=== PATIENT | male | born 1965 | race Hispanic/Latino ===

== ENCOUNTER 2023-03-12 18:31 | Emergency (ER) | payer OTHER ==
[~2023-03-12] VITALS: Ht 167.6 cm; Wt 111.4 kg
[2023-03-12] MEDS ORDERED: TETRACAINE HCL 0.5% 4 ML OPHTH SOLN OP SCH (19:00)
[2023-03-12] MEDS ORDERED: TETANUS/DIPHTHERIA TOXOID [ADULT] 0.5 ML VIAL IM ONE (22:00)
[2023-03-12] MEDS ORDERED: IBUPROFEN 600 MG TABLET PO ONE (22:30)
[2023-03-12 22:56] VITALS: BP 146/62; PULSE 74; RESP 18; O2SAT 98
== END 2023-03-12 23:24 | disposition short-term general hospital (02) ==
LOC: EDH 18:31
DX: S05.8X1A Other injuries of right eye and orbit, initial encounter (principal); X58.XXXA Exposure to other specified factors, initial encounter; Y93.89 Activity, other specified; Y92.89 Other specified places as the place of occurrence of the external cause; Y99.8 Other external cause status
CPT/HCPCS: 70480; 90471; 90714